=== PATIENT | female | born 1985 | race Caucasian/White ===

== ENCOUNTER → 2017-04-02 | Outpatient (CLI) | payer BC ==
[~2017-04-02] MED LIST: COLACE-DPS100 MG PO; MOTRIN-DPS800 MG PO; NIPPLECREAM TP; PERCOCET 5 DPS1 TAB PO; PRENATAL VIT1 TAB PO; PRILOSEC DPS20 MG PO
== END | disposition home or self-care (01) ==
LOC: RAD.S 12:52
DX: Z36 Encounter for antenatal screening of mother (principal); Z3A.33 33 weeks gestation of pregnancy

== ENCOUNTER 2017-04-19 19:00 | Observation (INO) | payer BC ==
--- NOTE | 2017-04-23 19:43 | HP ---
ADMIT: 04/20/2017 RM/LOC: 226 [facility] MR#: [id number] [address] [address] VIOLA ASENCIO [address] [place] [address] History and Physical SEX: F AGE: 31 : 1985 DATE OF SERVICE: 04/20/2017 CHIEF COMPLAINT: Contractions. HISTORY OF PRESENT ILLNESS: Viola is a very pleasant, 31-year-old female, 2, para 2, with current intrauterine at 36 weeks and 1/7 days, who presented to Labor and Delivery yesterday for a non-stress test. The patient follows normally with Dr. Hartley. has been uncomplicated until recently. She is Rh negative, and initially antibody screen in early revealed no antibodies. However, she recently had a repeat antibody screen done, and this did show positive alloimmunization for anti-D antibody. The patient states no RhoGAM given at 28 weeks. She has been followed closely with Dr. Hartley and recently was seen on 04/[address] Rosales at [facility]. She had an ultrasound there, which showed overall normal fetus. He felt that this would likely affect the . Recommended NSTs, and she is supposed to have a followup ultrasound for well being today. At any rate, the patient came in yesterday for an NST for monitoring. As she was here, she started having regular contractions about every 4 minutes. Nursing personnel initially felt that cervix possibly changed from about 2 to 3 cm. She was admitted OPO last night for further monitoring and evaluation. Given the fact that she is between 34 and 37 weeks, decision was made to go ahead and start her on betamethasone and she did receive her first dose last night. This morning, the patient states that she is feeling well. Her contractions have initially improved last night, but now have returned and feel little bit more intense. She rates them at a 4. She was monitored few different times of cervical checks overnight and did not have any change. The patient denies any decreased movement. Overall, she feels well. She denies any fluid leakage. PAST MEDICAL HISTORY: 1. Obesity. 2. Allergic rhinitis. MEDICATIONS: vitamin. ALLERGIES: NO KNOWN DRUG ALLERGIES. SOCIAL HISTORY: No alcohol, drug, or tobacco use. Father of baby is involved. FAMILY HISTORY: Noncontributory. REVIEW OF SYSTEMS: A 10-point review of systems obtained, per HPI otherwise negative. PHYSICAL EXAMINATION: VITAL SIGNS: Within normal limits and stable. Afebrile. ADMIT: 04/20/2017 RM/LOC: 226 [facility] MR#: [id number] [address] [address] VIOLA ASENCIO [address] [place] [address] History and Physical SEX: F AGE: 31 : 1985 GENERAL: Alert and oriented x3, in no acute distress. HEENT: Pupils equal, round, and reactive. Extraocular muscles are intact. Throat is clear. Trachea is midline. HEART: Regular rate and rhythm. No murmurs, rubs, or gallops. LUNGS: Clear to auscultation bilaterally without any wheezes or crackles. ABDOMEN: Soft. Gravid. Cervical check shows 3 cm, soft, mid position, -3 station. heart tones category I. Contractions every 10 to 20 minutes. LABORATORY DATA: NA. ASSESSMENT AND PLAN: This is a 31-year-old, 3, para 2, with: 1. Intrauterine at 36 weeks and 1/7 days by first trimester ultrasound. Confirmed with first trimester ultrasound. 2. premature contractions, rule out labor. 3. 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 4. Rh negative. 5. No evidence of hydrops on recent ultrasound on 04/16/2017. 6. History of section x1 for failure to progress induction. 7. Obesity. 8. History of gestational hypertension with past pregnancies. PLAN: Discussed at length with the patient. At this point, given the fact that she has been started on a course of IV steroids for possible labor, we will continue to monitor for 48 hours. We will need to cancel her appointment and repeat ultrasound with [facility] today. We will get an ultrasound today with a biophysical profile and cord Doppler studies. If the patient remains , we will likely follow up with [facility] next week and we will reschedule that. Discussed all the precautions with the patient, and she is in agreement with this plan. We will continue to monitor closely. Baltazar Arndt MD/ ryanne JOB #: [id number] CC: Niall Hartley, Attending Physician Con Lang, Family Physician
[2017-05-15] MEDS ORDERED: PRENATAL VIT1 TAB PO (06:22)
[2017-05-15] MEDS ORDERED: COLACE-DPS100 MG PO (06:22)
[2017-05-15] MEDS ORDERED: PRILOSEC DPS20 MG PO (06:22)
[2017-05-15] MEDS ORDERED: NIPPLECREAM TP (06:23)
[2017-05-15] MEDS ORDERED: PERCOCET 5 DPS1 TAB PO (06:23)
[2017-05-15] MEDS ORDERED: MOTRIN-DPS800 MG PO (06:23)
== END 2017-04-21 09:43 | disposition home or self-care (01) ==
LOC: BC 19:00 → 2LDRP 19:00 → BC 04-20 00:01 → 2LDRP 04-20 02:23 → BC 04-20 02:23 → 2LDRP 04-20 19:00 → BC 04-20 19:00 → 2LDRP 04-21 09:43 → BC 05-18 08:00
PROVIDERS: ADMIT Family Medicine
DX: O60.03 Preterm labor without delivery, third trimester (principal); O99.213 Obesity complicating pregnancy, third trimester; E66.9 Obesity, unspecified; Z68.35 Body mass index [BMI] 35.0-35.9, adult; Z3A.36 36 weeks gestation of pregnancy

== ENCOUNTER 2017-05-10 05:10 | Inpatient (IN) | payer BC ==
[~2017-05-10] VITALS: Ht 162.6 cm; Wt 103.0 kg
--- NOTE | 2017-05-10 15:30 | HP ---
ADMIT: 05/10/2017 RM/LOC: 224 [facility] MR#: [id number] [address] [address] MELISSA ASENCIO [address] [place] [address] History and Physical SEX: F AGE: 31 : 1985 DATE OF SERVICE: CHIEF COMPLAINT: Term , repeat . CLINICAL HISTORY: The patient is a 31-year-old white female, 3, para 2-0-0-2, who is admitted at this time for repeat . She is currently 39 weeks' with predicted EDC of 05/17/2017, admitted at 39 weeks for elective repeat . The patient has been followed for her care in our office since early in the . has been complicated by Rh sensitization during the course of the . The patient has been seen in consultation at the [facility] and has been followed there since 32 weeks when she was found to have a positive anti-D antibody. Subsequent screening has revealed no evidence of significant anemia or complications related to her Rh sensitization. For details of her care, I refer you to the record. As noted, she has been followed since early in the with her first visit at 9 weeks. Early ultrasound confirmed her dates to be accurate other than for her Rh isosensitization. During the course of the , we have had no other significant complication. PAST MEDICAL HISTORY: PREVIOUS HOSPITALIZATIONS: The patient delivered her first via vaginal delivery. Her second was delivered via C- section after failure to progress. Her last was in January of 2009. She has had no other recent hospitalizations for surgical procedures. MEDICAL ILLNESSES: The patient has no known chronic medical problems. As noted, she did have isosensitization to the Rh factor during the course of this . MEDICATIONS: 1. She is on vitamins. 2. vitamins. 3. She has been taking Tums for GERD or acid reflux symptoms. 4. Omeprazole for GERD or acid reflux symptoms. ALLERGIES: NO KNOWN ALLERGIES. SOCIAL HISTORY: The patient is noted to be a nonsmoker. She does not consume alcoholic beverages. She has no history of illicit drug use. FAMILY HISTORY: There is a strong family history of diabetes. Otherwise, no other significant family related health problems. REVIEW OF SYSTEMS: CONSTITUTIONAL: No fever. No chills. Appetite has been good throughout the . HEENT: Some allergy related nasal congestion. PULMONARY: Some shortness of breath now that she is at term. No history of asthma. CARDIAC: No known heart conditions. No history of heart murmur or valvular heart disease. Has had -induced hypertension with her first 2 ADMIT: 05/10/2017 RM/LOC: 224 [facility] MR#: [id number] [address] [address] MELISSA ASENCIO [address] [place] [address] History and Physical SEX: F AGE: 31 : 1985 pregnancies. GASTROINTESTINAL: No nausea. No vomiting. Some intermittent dyspepsia and GERD symptoms. GENITOURINARY: No voiding symptoms other than for urinary frequency. MUSCULOSKELETAL: Some ongoing low back discomfort. NEUROLOGIC: No focal symptoms. No unusual headaches. ENDOCRINE: No history of diabetes. HEMATOLOGIC: The patient is Rh negative with her irregular antibody screen was negative at the onset of the . When repeated at 32 weeks, her antibody screening was positive. Subsequently, she has had high risk screening at the [facility]. PHYSICAL EXAMINATION: VITAL SIGNS: Her temp is 98.8, pulse is 88, blood pressure is 118/78, and respirations 16. GENERAL: The patient is a 31-year-old female, who appears her stated age. She is in no acute distress. HEENT: Unremarkable. Nose and throat noninflamed. Oropharynx is normal. NECK: Supple. Thyroid not enlarged. No cervical adenopathy. LUNGS: Clear. HEART: Regular rhythm without murmur. ABDOMEN: Today is consistent with term . Fundal height 39 cm. Uterus is soft. No active contractions. GENITOURINARY: On vaginal exam, she is noted to be in a vertex presentation. Bag of taylor is intact. She is 2 cm, 50% effaced with a very stretchy cervix. EXTREMITIES: Today are noted to have 1+ pedal and ankle edema. No calf tenderness. No signs of thrombophlebitis. Homans sign. Reflexes are 2+. NEUROLOGIC: She is intact with no focal deficits. ASSESSMENT AT THE TIME OF ADMISSION: 1. Term intrauterine , currently at 39 weeks. 2. Rh negative mother with isosensitization to the Rh factor during the course of the . 3. Positive anti-D antibody. 4. Repeat section. PLAN: The patient is to be admitted on the morning of 05/10/2017, for repeat . Dr. Lang has been consulted. Plan to proceed with repeat C- section on the morning of 05/10/2017. Niall Hartley MD/ ryanne JOB #: [id number] CC: Niall Hartley, Attending Physician Niall Hartley, Family Physician
[2017-05-15] MEDS ORDERED: PRENATAL VIT1 TAB PO (06:22)
[2017-05-15] MEDS ORDERED: PRILOSEC DPS20 MG PO (06:22)
[2017-05-15] MEDS ORDERED: COLACE-DPS100 MG PO (06:22)
[2017-05-15] MEDS ORDERED: NIPPLECREAM TP (06:23)
[2017-05-15] MEDS ORDERED: MOTRIN-DPS800 MG PO (06:23)
[2017-05-15] MEDS ORDERED: PERCOCET 5 DPS1 TAB PO (06:23)
--- NOTE | 2017-05-28 09:38 | OR ---
ADMIT: 05/10/2017 RM/LOC: 224 [facility] MR#: [id number] [address] [address] MELISSA ASENCIO [address] [place] [address] Operative/Delivery Room Report SEX: F AGE: 31 : 1985 Corrected: 05/11/2017 0551 nj SURGERY DATE: 05/10/2017 SURGEON: Con Lang MD PREOPERATIVE DIAGNOSES: 1. A 31-year-old, -0-0-2, with an intrauterine at 39 weeks 0 days via LMP and confirmed with 1st trimester ultrasound. 2. History of primary low transverse section in 2008 secondary to arrest of descent. 3. History of preeclampsia in 2 previous pregnancies. Normal blood pressure in this . 4. Desires elective repeat section. POSTOPERATIVE DIAGNOSIS: -0-0-3 status post repeat low transverse section at 39 weeks 0 days. PROCEDURE: Repeat low transverse section. ASSISTANTS: 1. Niall Hartley MD. 2. Dara Barnett MD, Resident. INDICATIONS: The patient is a 31-year-old, -0-0-2 at 39 weeks 0 days estimated gestational age by LMP and confirmed with ultrasound who [facility] with chief complaint of elective section. Previous section in 2008 for arrest of descent. Her has been complicated by Rh-negative status with a history of isoimmunization to anti-D immunoglobulin. Her is also complicated by obesity. She has a history of preeclampsia in previous pregnancies, but has had normal blood pressure this . ANESTHESIA: Spinal. COMPLICATIONS: None. The patient tolerated the procedure well. ESTIMATED BLOOD LOSS: 250 mL. FLUID: 2750 mL LR. URINE OUTPUT: 125 mL clear urine. FINDINGS: 1. A male infant in LOT presentation. information below. 2. No meconium present at delivery. Resuscitation team was present at delivery. 3. score 8 and 9 with a weight of 3204 g. 4. Normal uterus, tubes, and ovaries. ADMIT: 05/10/2017 RM/LOC: 224 [facility] MR#: [id number] [address] [address] MELISSA ASENCIO [address] [place] [address] Operative/Delivery Room Report SEX: F AGE: 31 : 1985 DELIVERY INFORMATION: Delivery date is 05/10/2017. Delivery time is 07. sex is male. Delivery type, repeat low transverse section. DISPOSITION: , infant stable in mother's room. Mother is stable in room. PROCEDURE IN DETAIL: The patient was taken to the operating room and spinal anesthesia was administered. She was placed in a dorsal supine position with a leftward tilt. SCDs and Gannon catheter were placed, and she was prepped and draped in the normal sterile fashion. A time-out was performed. Anesthesia was found to be adequate. Antibiotics were given prior to skin incision. A Pfannenstiel skin incision was then made over her pre-existing incision with a scalpel and carried through to the underlying layer of fascia with a scalpel. The fascia was nicked in the midline and extended laterally with Mendez scissors. The superior aspect of the fascial incision was then grasped with Clarisa clamps, elevated, and underlying rectus muscles were dissected off bluntly. Attention was then turned to the inferior aspect of this incision, which in a similar fashion was dissected. The rectus muscles were then in the midline and the peritoneum was identified, it was tented up, and entered bluntly. The peritoneum was then stretched to get good visualization of the bladder. A bladder blade was then inserted into the vesicouterine and peritoneum. A bladder flap was made. The peritoneum was grasped with pickups and entered sharply with Metzenbaum scissors. Incision was then extended laterally and the bladder flap created digitally. The lower uterine segment was then incised in a transverse fashion with the scalpel. The uterine incision was then extended laterally. The bladder blade was removed. The 's head was brought to the hysterotomy and delivered atraumatically with the body following. The infant was vigorous and crying. Delayed cord clamping was performed. The cord was clamped and cut and the infant was handed to the awaiting resuscitation team. Cord blood was collected. Cord gas was not collected. The placenta was then removed with fundal massage and cord traction. The uterus was exteriorized and cleared off all clots and debride. The placenta was not sent to pathology. The uterine incision was repaired with 0 Polysorb in a running, locked fashion. There is excellent hemostasis. The posterior cul-de-sac was then visualized and cleared of clots and debris. The uterus was replaced and the left and right pericolic gutters visualized and ADMIT: 05/10/2017 RM/LOC: 224 [facility] MR#: [id number] [address] [place] [address] MELISSA ASENCIO [address] [place] [address] Operative/Delivery Room Report SEX: F AGE: 31 : 1985 cleared of clot and debris. The uterine incision was again visualized and noted to remain hemostatic. The peritoneum was then reapproximated but not closed. The fascia was closed with 0 Polysorb in a running fashion and irrigated. Hemostasis was ensured. The subcutaneous tissue was closed with 2-0 plain in a running fashion. The skin was closed with a subcuticular stapler. The patient tolerated the procedure well. Instrument, sponge, lap, and needle counts were correct x2. The patient was taken to the recovery room in stable condition. There were no complications. Dr. Con Lang was present and scrubbed for the entire delivery. Dara Barnett MD Resident / Con Lang MD / ryanne JOB #: [id number] CC: Niall Hartley, Attending Physician Niall Hartley, Family Physician Corrected: 05/11/2017 0551 njv
--- NOTE | 2017-06-18 09:31 | DS ---
ADMIT: 05/10/2017 RM/LOC: 224 [facility] MR#: [id number] [address] [address] MELISSA ASENCIO [address] [place] [address] Discharge Summary SEX: F AGE: 31 : 1985 CORRECTED: 05/31/2017 1428 ALICIA ADMISSION DATE: 05/10/2017 DISCHARGE DATE: 05/13/2017 FINAL DIAGNOSES: 1. A 31-year-old, G3, P3-0-0-3, status post repeat low transverse section at 39 weeks' 0 days. 2. RH negative with anti-D isoimmunization. 3. History of primary section. 4. History of preeclampsia in previous pregnancies with different father of the baby this . REASON FOR ADMISSION: This is a 31-year-old, G3, P3-0-0-3, who [facility] for a planned repeat low transverse section at 39 weeks' 0 days. Her had been complicated by the above list of complications. HOSPITAL COURSE: The patient was admitted, she ultimately underwent a repeat low transverse section and had a male infant with a weight of 3204 g and Apgars of eight and nine. The baby's hospital course was complicated by hyperbilirubinemia for which she was admitted to the NICU for treatment. At the time of mother's discharge, the infant remained in the intensive care unit for treatment of hyperbilirubinemia. The patient's course was uncomplicated. She is breast feeding. She is meeting discharge criteria and desires to be discharged to home today, postoperative day three. She is undecided on contraception. Her blood pressures remained well controlled less than 140/80 during this admission. No signs of preeclampsia were noted. Given her history of preeclampsia, did review signs and symptoms of preeclampsia in the period. Delivery information: Delivery date was 05/10/2017. Delivery time was 0738 hours. Delivery type was repeat low transverse section. sex is male. Weight was 3204 g. Apgars were eight and nine. This was an average for gestational age infant. LABORATORY DATA: All labs final at the time of discharge. DISCHARGE MEDICATIONS: 1. Percocet 5 mg 1-2 tabs q.4 hours p.r.n. for pain. 2. Motrin 800 mg q.8 hours p.r.n. for pain. 3. Colace 100 mg b.i.d. 4. vitamin. 5. Continue home omeprazole 20 mg daily. PATIENT INSTRUCTIONS: The patient was instructed to have pelvic rest for six ADMIT: 05/10/2017 RM/LOC: 224 [facility] MR#: [id number] [address] [address] MELISSA ASENCIO [address] [place] [address] Discharge Summary SEX: F AGE: 31 : 1985 weeks. Recommended no driving while on narcotics. Recommended lifting restriction of 20 pounds for six weeks. She should notify her physician with a temperature greater than 100.4, if she is having brisk vaginal bleeding that soaks through more than one pad per hour, if any area of her breast becomes red or painful, or her pain is no longer controlled by oral pain medications. Recommend a general diet with increased fluid intake. Discussed signs and symptoms of blues as well as preeclampsia and she should contact us immediately should this become a concern. The patient was seen and discussed on day of discharge with Dr. Eliane Bone. Recommend follow up with Dr. Hartley in six weeks for check. Dara Barnett MD Resident / Con Lang MD / shira JOB #: [id number] CC: Niall Hartley MD, Attending Physician Niall Hartley MD, Family Physician CORRECTED: 05/31/2017 1428 DJS
== END 2017-05-13 13:00 | disposition home or self-care (01) | DRG 765 ==
LOC: 2LDRP 05:10 → BC 05:10 → 2LDRP 05:11 → BC 05-18 12:11
PROVIDERS: ADMIT Family Medicine
PROC: 10D00Z1 Extraction of Products of Conception, Low, Open Approach (ICD-10-PCS; principal; 2017-05-10)
PROC: 3E0234Z Introduction of Serum, Toxoid and Vaccine into Muscle, Percutaneous Approach (ICD-10-PCS; principal; 2017-05-10)
DX: O34.211 Maternal care for low transverse scar from previous cesarean delivery (principal); O36.0130 Maternal care for anti-D [Rh] antibodies, third trimester, not applicable or unspecified; O99.62 Diseases of the digestive system complicating childbirth; K21.9 Gastro-esophageal reflux disease without esophagitis; Z3A.39 39 weeks gestation of pregnancy; Z37.0 Single live birth